=== PATIENT | male | born 1985 | race Caucasian/White ===

== ENCOUNTER 2016-08-10 05:19 | Emergency (ER) | payer OTHER | END 2016-08-10 06:24 | disposition home or self-care (01) | LOC: ER 05:19 | DX: S01.81XA Laceration without foreign body of other part of head, initial encounter (principal); W19.XXXA Unspecified fall, initial encounter; J45.909 Unspecified asthma, uncomplicated; F17.210 Nicotine dependence, cigarettes, uncomplicated; Z88.0 Allergy status to penicillin | CPT/HCPCS: 12001; 99070; 99282-25; 99283 ==